=== PATIENT | female | born 1975 | race Hispanic/Latino ===

== ENCOUNTER 2023-07-22 23:58 | Emergency (ER) | payer BC ==
[~2023-07-22] VITALS: Ht 154.9 cm; Wt 80.7 kg
[2023-07-23] MEDS: HYDROXYZINE 25 MG TABLET PO ONE (00:21)
[2023-07-23] MEDS: HYDROXYZINE 50MG VIAL 50 MG/ML VIAL IM SCH (01:20)
[2023-07-23 02:21] VITALS: BP 137/72; PULSE 68; RESP 18; O2SAT 98
== END 2023-07-23 02:23 | disposition home or self-care (01) ==
LOC: EDH 23:58
DX: F41.9 Anxiety disorder, unspecified (principal); I10 Essential (primary) hypertension
CPT/HCPCS: 99284; 96372; 93005; J3410

== ENCOUNTER 2024-11-14 18:22 | Emergency (ER) | payer BC ==
[~2024-11-14] VITALS: Ht 154.9 cm; Wt 71.2 kg
--- NOTE | 2024-11-14 19:04 | ERN ---
ED Note History of Present Illness Stated Complaint: LEFT ARM NUMBNESS/TINGLING Chief Complaint: Numbness Time Seen by MD: 18:42 Time Seen by Midlevel: 18:43 Dictation: 49-year-old female presents to the emergency department due to reported having numbness and tingling and sporadic areas of the left arm for the past week. She states that she was concerned due to having had some chest pain at 3:00 a.m. that lasted for 5 hours this is back. The pain is described as being a pressure type of sensation. Currently, she denies having any chest pain, chest pressure or shortness of breath. The patient states that she does have a history of anxiety and does not know whether or not this might be related to that. Upon initial evaluation, the patient presents in no acute respiratory distress. Allergies: Coded Allergies: No Known Allergies (Unverified Allergy, Unknown, 11/14/24) Emergency Care CUSTOMER ACCOUNT ADMINISTRATOR: None Past Medical History Past Medical History: Anxiety, Asthma, Hypertension Surgical History: None PSYCH History: anxiety History: Not Applicable LMP: Apr 23, 2024 RN Note Reviewed/Agreed w/PFSH: Yes Review of System Dictation Cardiovascular: Chest pain Neuro: Left arm numbness/tingling Initial Vital Sign VS Vital Signs Date Time Temp Pulse Resp B/P (MAP) Pulse Ox O2 Delivery O2 Flow Rate FiO2 11/14/24 18:23 97.9 67 16 155/85 99 Room Air 0 11/14/24 21:10 21 Physical Exam Dictation General: awake, alert, NAD Head/Face: Normocephalic, atraumatic Eyes: PERRL, EOMI ENT: Oral mucosa moist Neck: Trachea midline, supple Cardiovascular: RRR, no edema Respiratory: Symmetrical, non-labored Abdomen: Soft, non-tender, non-distended, no guarding. Skin: Warm, dry, good turgor, no rash MS/Extremity: Pulses equal, no cyanosis, neurovascular intact, FROM Neuro: COAx4, GCS 15, steady gait, Psych: Normal behavior, mood, and affect normal Results (Laboratory/Radiology) Laboratory/Radiology Laboratory Tests Test 11/14/24 19:08 11/14/24 21:15 White Blood Count 7.6 K/uL (4.8-10.8) Red Blood Count 4.35 MIL/uL (4.00-5.50) Hemoglobin 13.3 g/dL (12.0-16.0) Hematocrit 38.4 % (36-48) Mean Corpuscular Volume 88.3 fL (79-99) Mean Corpuscular Hemoglobin 30.6 pg (27.0-33.0) Mean Corpuscular Hemoglobin Concent 34.6 g/dL (32.0-36.0) Red Cell Distribution Width 12.2 % (11.0-15.5) Platelet Count 278 K/uL (130-400) Mean Platelet Volume 9.5 fL (7.5-10.5) Immature Granulocyte % (Auto) 0.3 % (0-1) Neutrophils (%) (Auto) 59.4 % (40.0-77.0) Lymphocytes (%) (Auto) 33.2 % (21.0-51.0) Monocytes (%) (Auto) 5.3 % (3.0-13.0) Eosinophils (%) (Auto) 1.3 % (0.0-8.0) Basophils (%) (Auto) 0.5 % (0.0-5.0) Neutrophils # (Auto) 4.5 K/uL (1.8-7.7) Lymphocytes # (Auto) 2.5 K/uL (1.0-4.8) Monocytes # (Auto) 0.4 K/uL (0.1-1.0) Eosinophils # (Auto) 0.10 K/uL (0.00-0.70) Basophils # (Auto) 0.04 K/uL (0.00-0.20) Absolute Immature Granulocyte (auto 0.02 K/uL (0-1) Nucleated Red Blood Cells 0.0 % (0.0-0.19) Sodium Level 141 mmol/L (136-145) Potassium Level 3.6 mmol/L (3.5-5.1) Chloride Level 102 mmol/L (101-111) Carbon Dioxide Level 32 mmol/L (21-32) Blood Urea Nitrogen 13 mg/dL (7-18) Creatinine 0.8 mg/dL (0.5-1.0) Glomerular Filtration Rate Calc 90 mL/min (>90) Random Glucose 97 mg/dL (70-105) Total Calcium 9.2 mg/dL (8.5-10.1) Total Bilirubin 0.4 mg/dL (0.2-1.0) Aspartate Amino Transf (AST/SGOT) 20 U/L (10-37) Alanine Aminotransferase (ALT/SGPT) 32 U/L (12-78) Alkaline Phosphatase 89 U/L (50-136) Troponin I High Sensitivity 4 ng/L (4-50) Total Protein 7.3 g/dL (6.0-8.3) Albumin 4.1 g/dL (3.5-5.0) Serum Test, Qualitative NEGATIVE (NEGATIVE) Urine Color COLORLESS (YELLOW) Urine Appearance CLEAR (CLEAR) Urine pH 5.5 (5.0-8.0) Urine Specific [place] 1.004 (1.001-1.031) Urine Protein NEGATIVE mg/dL (NEGATIVE) Urine Glucose (UA) NEGATIVE mg/dL (NEGATIVE) Urine Ketones NEGATIVE mg/dL (NEGATIVE) Urine Occult Blood NEGATIVE (NEGATIVE) Urine Nitrate NEGATIVE (NEGATIVE) Urine Bilirubin NEGATIVE mg/dL (NEGATIVE) Urine Urobilinogen 0.2 mg/dL (0.2-1.0) Urine Leukocyte Esterase NEGATIVE [place]/uL Urine Opiates Screen NEGATIVE (NEGATIVE) Urine Barbiturates Screen NEGATIVE (NEGATIVE) Urine Phencyclidine Screen NEGATIVE (NEGATIVE) Urine Amphetamines Screen NEGATIVE (NEGATIVE) Urine Benzodiazepines Screen NEGATIVE (NEGATIVE) Urine Cocaine Screen NEGATIVE (NEGATIVE) Urine Marijuana (THC) Screen NEGATIVE (NEGATIVE) Labs Reviewed?: Yes EKG: (+) NSR EKG Comment: EKG done 11/14/2024 at 8:25 p.m.. Ventricular rate 59 beats per minute NM 156 MS QRS 79 MS QT 412 MS No STEMI. X-RAY Comment: Chest x-ray one view with no pertinent findings. Cervical spine x-ray with degenerative changes. The ED Course ED Course Orders Procedure Category Date Status Time Urinalysis Profile LAB 11/14/24 Complete 18:43 Drug Screen Urine LAB 11/14/24 Complete 18:43 Troponin I High LAB 11/14/24 Complete Sensitivity 18:51 Cbc With Differential LAB 11/14/24 Complete 18:51 Comprehensive LAB 11/14/24 Complete Metabolic Panel 18:51 Chest 1vw RAD 11/14/24 Resulted 18:51 Cerv Spine 2-3vws RAD 11/14/24 Resulted 18:51 12 Lead Ekg Tracing- EKG 11/14/24 Complete Technical 18:51 Testing, LAB 11/14/24 Complete Serum Hcg 21:44 Vital Signs Date Time Temp Pulse Resp B/P (MAP) Pulse Ox O2 Delivery O2 Flow Rate FiO2 11/14/24 21:10 98.8 79 12 155/91 100 Room Air* 0 21 11/14/24 18:23 97.9 67 16 155/85 99 Room Air 0 HEART Score Response (Comments) Value History: Low suspicion (0) 0 EKG: Normal 0 Age: 45-65yrs (+1) 1 Risk Factors: 1-2 risk factors (+1) 1 Initial Troponin: Normal limit (0) 0 HEART Score Risk: Low Risk for MACE (1-3) Total 2 Medical Decision Making MDM MDM: Differential diagnosis: Chest pain, cervical radiculopathy, anxiety. Rationale: Tests considered and ordered secondary to shared decision making include: Previous outside records reviewed: Old ER visits. Risk of complication and/or morbidity or mortality of patient management: None Medications-Per medication reconciliation Need for hospitalization: Patient does not meet criteria for hospitalization. Need for emergency major/minor surgery: No There are no social concerns with this patient. Prescription drug management Prescriptions will include symptomatic care Patient's prior external medical records from other ER visits were reviewed by me as indicated. Prior testing and results from previous visits were reviewed. Prior tests were taken into account with medical decision making and resource utilization, independent historian/historians were used to obtain complete medical history. I independently interpreted the test that were performed, results were reviewed by me and considered findings on radiology if ordered. Medical management and examination interpretation discussions were had by me with other qualified healthcare professionals as indicated for the patient's care. DX & DISP Disposition: Discharge Departure Impression: Primary Impression: Chest pain Additional Impression: Cervical radiculopathy Condition: Stable Referrals: VALDEZ CHEEMA MD (PCP) Time of Disposition: 21:58 LAKSHMI GRANADOS Nov 14, 2024 19:04
[2024-11-14 19:13] LABS: IMMATURE GRANULOCYTE ABSOLUTE 0.02 K/uL (0-1); NUCLEATED RED BLOOD CELLS 0.0 % (0.0-0.19); PLATELET COUNT (AUTO) 278 K/uL (130-400); RED BLOOD CELL COUNT(AUTO) 4.35 MIL/uL (4.00-5.50); RED CELL DISTRIBUTION WIDTH 12.2 % (11.0-15.5); WHITE BLOOD COUNT (AUTO) 7.6 K/uL (4.8-10.8)
[2024-11-14 19:25] LABS: CREATININE 0.8 mg/dL (0.5-1.0); GLOMERULAR FILTR. RATE CALC 90.0 mL/min (>90); GLUCOSE,RANDOM 97.0 mg/dL (70-105); SODIUM SERUM 141.0 mmol/L (136-145); UREA NITROGEN, BLOOD 13.0 mg/dL (7-18)
[2024-11-14 19:29] LABS: ASPARTATE AMINOTRANSFERASE 20.0 U/L (10-37); TOTAL PROTEIN, SERUM 7.3 g/dL (6.0-8.3)
--- NOTE | 2024-11-14 20:30 | EKG ---
[facility] Test Date: 2024-11-14 Test Time: 20:25:45 Pat Name: WILFRED SIERRA Department: [facility] Room: Gender: F Court Clerk: [id number] : 1975 Requested By: LAKSHMI GRANADOS Order Number: [id number] Reading MD: Richard Redmond Measurements Intervals [place] Rate: 59 P: 24 TX: 156 QRS: 25 QRSD: 79 T: 23 QT: 412 QTc: 408 Interpretive Statements Sinus rhythm Compared to ECG 07/23/2023 00:25:30 Myocardial infarct finding no longer present Electronically Signed On 11-15-2024 09:55:09 CDT by Richard Redmond Please click the below link to view image of tracing.
--- NOTE | 2024-11-14 21:29 | HMCIMG ---
EXAM: XR Cervical spine, 2 Views. CLINICAL HISTORY: 49-year-old female with pain. COMPARISON: None provided. FINDINGS: BONES: No acute fracture or aggressive appearing osseous lesion. Straightening of the cervical spine may be related to positioning versus muscle spasm. Mild degenerative changes of the lower cervical spine. DISCS/DEGENERATIVE CHANGES: The disc spaces are preserved, although mild degenerative changes are seen in the lower cervical spine. SOFT TISSUES: No prevertebral soft tissue swelling evident in the cervical spine. The visualized lungs appear clear. IMPRESSION: 1. No acute abnormality evident in the cervical spine. 2. Straightening of the cervical spine, possibly related to positioning or muscle spasm. 3. Mild degenerative changes of the lower cervical spine. /[place]
--- NOTE | 2024-11-14 21:29 | HMCIMG ---
EXAM: XR Chest, 1 View. CLINICAL HISTORY: 49 year old female with chest pain. COMPARISON: None provided. FINDINGS: LUNGS: The lungs are clear. No consolidation. PLEURAL SPACES: No pleural effusion or pneumothorax. HEART: The heart size is normal. BONES: No acute osseous abnormality. IMPRESSION: 1. No acute cardiopulmonary pathology. /[place]
[2024-11-14 21:34] LABS: APPEARANCE,URINE CLEAR (CLEAR); GLUCOSE, URINE (UA) NEGATIVE (NEGATIVE); LEUKOCYTE ESTERASE ,URINE NEGATIVE Leu/uL (NEGATIVE); NITRATE,URINE NEGATIVE (NEGATIVE); OCCULT BLOOD,URINE NEGATIVE (NEGATIVE)
[2024-11-14 21:41] LABS: ADD UA MICROSCOPIC NO
[2024-11-14 21:42] LABS: AMPHET/METH SCREEN,URINE NEGATIVE (NEGATIVE); BARBITURATE SCREEN, URINE NEGATIVE (NEGATIVE); CANNABINOID SCREEN,URINE NEGATIVE (NEGATIVE); COCAINE SCREEN,URINE NEGATIVE (NEGATIVE)
[2024-11-14 22:12] VITALS: BP 152/94; PULSE 70; RESP 12; TEMP 98.4; O2SAT 93
== END 2024-11-14 22:18 | disposition home or self-care (01) ==
LOC: EDH 18:22
DX: R07.89 Other chest pain (principal); M54.12 Radiculopathy, cervical region; I10 Essential (primary) hypertension; J45.909 Unspecified asthma, uncomplicated; F41.9 Anxiety disorder, unspecified
CPT/HCPCS: 36415; 71045; 72040; 80053; 80305; 81003; 84484; 84703; 85025; 93005; 99284